=== PATIENT | female | born 1935 | race Caucasian/White ===

== ENCOUNTER → 2018-03-15 15:32 | Outpatient (CLI) | payer OTHER, SELFPAY ==
--- NOTE | 2018-03-15 15:35 | CT_ITS ---
STUDY: CT ABDOMEN AND PELVIS WITH CONTRAST REASON FOR EXAM: Female, 82 years old. Left lower quadrant pain. Left groin pain x2 weeks RADIATION DOSAGE (If Supplied By Facility): CTDIvol = ( 9.08 ) mGy, DLP = ( 342.11 ) mGycm TECHNIQUE: Transaxial images were obtained from the dome of the diaphragm to the symphysis pubis with oral contrast. 100 ml of Isovue 300 contrast was administered. Sagittal and coronal images were reconstructed. Individualized dose optimization techniques were used for this CT. COMPARISON: None. FINDINGS: The visualized lung bases are unremarkable. The visualized portions of the heart are within normal limits. Normal liver. Normal gallbladder and extrahepatic biliary system. Normal spleen. Normal pancreas. Normal bilateral adrenal glands. Exophytic cortex renal mass with enhancement measuring 1.2 x 1.1 cm. Otherwise, normal right kidney. Normal left kidney. There is a small hiatal hernia. Normal small intestine. There are multiple colonic diverticula consistent with diverticulosis. There is non-visualization of the appendix. There is diffuse atherosclerotic calcification of the abdominal aorta, without a demonstrated aneurysm. Normal inferior vena cava. Normal retroperitoneum. Normal urinary bladder. There is atrophy of the uterus. No evidence of bowel containing inguinal hernia. There are diffuse degenerative changes of the visualized lumbar spine. CT/Abdomen/Pelvis WITH Contrast IMPRESSION: 1. No evidence of acute findings. No evidence of diverticulitis or bowel containing inguinal hernia 2. Chronic diverticulosis without acute diverticulitis 3. Enhancing exophytic right renal mass as above. Further evaluation with ultrasound is warranted Electronically Signed: Felix Saldivar DO at 18:10 EDT Tel , Service support ,
[2018-03-15 17:36] LABS: CREATININE FINGERSTICK 0.8 mg/dL (0.55-1.02); EGFR FINGERSTICK > 60.0000 mL/min (>60)
== END ==
PROVIDERS: Family Provider Internal Medicine; PCP Internal Medicine; Visit Provider Surgery
DX: R10.9 Unspecified abdominal pain (principal); Z85.038 Personal history of other malignant neoplasm of large intestine
CPT/HCPCS: 74177; Q9967

== ENCOUNTER 2018-03-16 07:27 | Day surgery (SDC) | payer OTHER, SELFPAY ==
[2018-03-16] VITALS (7 sets, daily range): BP systolic 109–158; BP diastolic 50–63; PULSE 61–69; RESP 14–16; TEMP 36.1–36.8; O2SAT 97–100; BMI 19.8
--- NOTE | 2018-03-16 08:26 | EKG12_ITS ---
Test Reason : PRE OP Blood Pressure : / mmHG Vent. Rate : 063 BPM Atrial Rate : 063 BPM P-R Int : 192 ms QRS Dur : 088 ms QT Int : 426 ms P-R-T Axes : 063 049 062 degrees QTc Int : 435 ms Normal sinus rhythm Normal ECG When compared with ECG of 08-AUG-2013 10:45, No significant change was found Confirmed by LETA BISHOP, MOISE ([id number]), photography editor JENNIFER MERCEDES ([id number]) on 03/19/2018 10:03:16 AM Referred By: Byron Corea Confirmed By:MOISE GILLETTE MD
[2018-03-16 08:40] LABS: Hematocrit 35.8 % (37-47); Hemoglobin 11.7 g/dl (12.0-15.0); Mean Corp Hgb Conc 32.7 g/gl (32-36); Mean Corpuscular Hgb 29.4 pg (27.0-32.0); Mean Corpuscular Volume 89.9 fL (81-99); Platelet Count 265 K/mm3 (150-450); RBC Distribution Width CV 13.3 % (11.6-14.6); Red Blood Count 3.98 M/mm3 (4.2-5.4); White Blood Count 5.3 K/mm3 (4.4-11.0)
[2018-03-16 08:41] LABS: Scan Indicated on CBC? Y/N NO
[2018-03-16 08:51] LABS: Anion Gap 6 (5-15); BUN 17 mg/dL (7-18); BUN/Creat Ratio 24.1 RATIO (10-20); Calcium,Total 9.5 mg/dL (8.5-10.1); Chloride 107 mmol/L (98-107); Creatinine, Serum 0.71 mg/dL (0.55-1.02); EST Glomerular Filtration Rate 85 mL/min (>60); Est Glom Filt Rate - Afr Amer 102 mL/min (>60); Estimated Creatinine Clearance 32.23 ml/min; Glucose 93 mg/dL (74-106); Sodium Level 140 mmol/L (136-145)
[2018-03-16] MEDS: Bupivacaine Mpf 0.5% 30 ML VIAL (09:37)
--- NOTE | 2018-03-16 09:44 | PCM.DC.GS ---
Discharge Diet: Light diet - advance as tolerated - if you have questions about your diet instructions, please talk to you doctor. Discharge Activity: May Not Drive - for 1 week or while taking narcotic pain medicine. May shower in (days): 1 Lifting Restrictions: 10 pounds Call your doctor if your incision/area has: Continuous Slow Oozing, Sudden Increased Bleeding, Increased Pain/ Swelling, Increased Redness, Foul Smelling Discharge Call your doctor if you observe: Fever of 101 or Higher Suture Line Care: Avoid Pulling/Pushing, Avoid Pinching/Bending Additional Dressing/Incision Instructions:: Change or remove dressing in 4 days. Leave steri-strips in place for 1 week. Allergies/Adverse Reactions: Allergies sulfamethoxazole [From Bactrim] Allergy (Verified 03/15/18 15:19) Rash trimethoprim [From Bactrim] Allergy (Verified 03/15/18 15:19) Rash Penicillins Adverse Reaction (Verified 03/15/18 15:19) Unknown Medications to take at Discharge Aspirin E.C. [Ecotrin] 81 mg PO DAILY@0800 08/08/13 acetaminophen 325 mg tablet 325 mg PO Q6H PRN 03/15/18 lisinopril 10 mg tablet 10 mg PO QDAY 03/15/18 Primary Care Physician: Aida Gaitan MD [Primary Care Provider] - Please Follow Up With: Byron Corea MD - [phone] When: Call to make an appointment to be seen in about 10 days.
--- NOTE | 2018-03-16 10:00 | HERN_PTH ---
PATIENT: TOM BONDS LOC: [facility] – [place] U#:[id number] AGE/SX: 82/F ROOM: RE03/16/[address]: Dr. Byron Corea MD : [id number] BED: DIS: 03/16/2018 SPEC #: [id number] RECD: 03/16/18 11:22 STATUS: STACY CLAUDIA #: [id number] EDIE: 03/16/18 10:[address]: Byron Corea DEPT: SURGICAL PATHOLOGY RECD BY: Bereket Michael ENTERED: 03/16/18 11:38 SP TYPE: Hernia OTHR DR: Dr. Aida Gaitan MD Tissues: HERNIA Procedures: Surgery Specimen Level II HEADER OPERATION: Open incarcerated femoral herniorrhaphy PRE-OP DIAGNOSIS: Incarcerated left femoral hernia TISSUE SUBMITTED: Left femoral hernia sac and contents MICROSCOPIC DIAGNOSIS Left inguinal hernia sac and content: Fragments of fibroadipose and fibroconnective tissue, consistent with hernia sac with focal reactive changes. RACHEL:teresa 03/17/18 MICROSCOPIC DESCRIPTION Slides are reviewed. GROSS DESCRIPTION Received in fixative is one container labeled with the patient's name and designated left inguinal hernia sac and contents. The specimen consists of multiple pieces of yellow adipose tissue measuring in aggregate 5 x 4 x 1.8 cm. No mass lesion is identified. Sections reveal yellow adipose cut surfaces. Cafeteria Assistant sections are submitted in 1 cassette. RACHEL:teresa 03/15/18 TC:5 CPT: 88255
--- NOTE | 2018-03-16 10:31 | PCM.OPRPT ---
Problem List (1) Femoral hernia of left side with obstruction Status: Acute Report of Operation Date of Procedure: 03/16/18 Pre-Operative Diagnosis: Incarcerated left femoral hernia Post-Operative Diagnosis: Same Surgery/Procedure Performed:: Left femoral herniorrhaphy Description of Surgical Findings:: Timeout and informed consent was obtained. 82-year-old female was taken to the operating room. She was placed on the table. She underwent general anesthesia. Gentamicin 900 mg given intravenously. The left groin was sterilely prepped and draped. A transverse incision was made directly over the palpable mass. Sharp dissection carried down through the subtenons tissue. Exuberant fibrofatty tissue encountered. This was dissected free to a very small defect. The sac and contents were sharply excised I then actually finding the residual defect was extraordinarily difficult. The femoral artery femoral vein identified. It was felt to be medial to the defect. This was secured with interrupted 2-0 Ethibond. 3 separate sutures were placed. Palpation failed to reveal any evidence of residual defect. Femoral artery and vein appear to be intact. Doppler confirmed compressible flow in the vein. The wound was closed in layers with deep layer of interrupted 4-0 Monocryl and then a running septic or 4-0 Monocryl. Steri-Strips Telfa and OpSite dressings applied. Sponge and instrument and needle counts were reported to the surgeon to be correct. Blood loss was minimal. Specimens include the hernia sac and contents. Drains none. Blood loss minimal. The patient will have future office follow-up and to reconsider future colonoscopy but adequate healing time will be permitted Byron Corea M.D., F.A.C.S.
[2018-03-16] MEDS: Acetaminophen 325 MG Tablet PO (11:54)
== END 2018-03-16 14:04 | disposition home or self-care (01) ==
LOC: SDC 07:29 → AC 07:29
PROVIDERS: Family Provider Internal Medicine; PCP Internal Medicine; Visit Provider Surgery
PROC: (CPT 49553; principal; 2018-03-16 09:45)
DX: K41.30 Unilateral femoral hernia, with obstruction, without gangrene, not specified as recurrent (principal); K44.9 Diaphragmatic hernia without obstruction or gangrene; M81.0 Age-related osteoporosis without current pathological fracture; M19.90 Unspecified osteoarthritis, unspecified site; I10 Essential (primary) hypertension; Z78.0 Asymptomatic menopausal state; Z85.038 Personal history of other malignant neoplasm of large intestine; Z86.010 Personal history of colon polyps; Z86.2 Personal history of diseases of the blood and blood-forming organs and certain disorders involving the immune mechanism; Z79.82 Long term (current) use of aspirin; Z79.899 Other long term (current) drug therapy
CPT/HCPCS: 49553; 36415; 80048; 85027; 88302; 93005; J7120; J2405

== ENCOUNTER 2021-03-27 16:20 | Emergency (ER) | payer OTHER, SELFPAY ==
[2021-03-27] VITALS (10 sets, daily range): BP systolic 144–216; BP diastolic 61–94; PULSE 62–72; RESP 12–22; TEMP 36.8; O2SAT 90–100; BMI 19.8; BMI 42.3
--- NOTE | 2021-03-27 16:46 | ED.VIS.FALL ---
HPI HPI - Fall History of Present Illness Chief Complaint: Fall Informant: patient Occured/Mechanism Occurred: Today Mechanism/Context: Yes same level fall and Yes trip Narrative: Tripped over a cord, falling to floor Pain/Injury Location: Right shoulder Current Severity: Moderate Maximum Severity: Severe Worsened by: Any movement Relieved by: Remaining still Associated Symptoms Associated Symptoms: Positive for Loss of function; Negative for Parasthesias and Weakness Narrative Narrative: Patient had outpatient x-rays diagnosed with an anterior shoulder dislocation, they were not able to get it in with putting weights on her right upper extremity, and she was referred here. She denies any other injury. Hgnwn-lwex-spvyoest. She takes a baby aspirin but no anticoagulants or other antiplatelet medications. [facility] Medical History (Updated 03/27/21 @ 20:[address] Roosevelt Chapa MD) Anal stenosis Colon polyp Fibrosclerosis of breast Generalized osteoarthritis Hiatal hernia Hx of malignant neoplasm of colon Hypertension incarcerated left femoral hernia Osteoporosis Vitamin D deficiency Home Medications aspirin 81 mg PO DAILY@0800 08/08/13 [History Last Taken Unknown] acetaminophen 325 mg tablet 325 mg PO Q6H PRN 03/15/18 [History Last Taken Unknown] lisinopril 10 mg tablet 10 mg PO QDAY 03/15/18 [History Last Taken Unknown] hydrocodone-acetaminophen 1 tab PO Q6H PRN PRN 3 Days #12 tablet 03/27/21 [Rx Last Taken Unknown] Allergy/AdvReac Type Severity Reaction Status Date / Time sulfamethoxazole Allergy Rash Verified 03/27/21 16:22 [From Bactrim] trimethoprim [From Bactrim] Allergy Rash Verified 03/27/21 16:22 Penicillins AdvReac Unknown Verified 03/27/21 16:22 Family History Father Colon cancer Mother Diabetes Heart disease High cholesterol Hypertension Surgical History history left femoral herniorrhaphy Hx of colectomy Social History Smoking Status: Never smoker second hand exposure: No alcohol intake: never substance use type: does not use caffeine: Yes what type of physical activity do you participate in: none frequency: does not exercise seatbelt use: always ROS ROS ED Constitutional Constitutional ED: Denies chills or fever(s) Eyes Eyes: Denies change in vision or diplopia ENT ENT ED: Denies rhinorrhea or sore throat Cardiovascular Cardiovascular: Denies chest pain or palpitations Respiratory/Chest Respiratory/Chest: Denies cough or dyspnea Gastrointestinal Gastrointestinal: Denies abdominal pain, diarrhea, nausea or vomiting Genitourinary Genitourinary ED: Denies dysuria or hematuria Musculoskeletal Musculoskeletal: Reports as per HPI and extremity pain; Denies back pain or neck pain Integumentary Denies abscess or rash Neurologic Neurologic: Denies headache(s), paresthesias or weakness Psychiatric Psychiatric: Denies anxiety or suicidal thoughts EXAM Physical Exam Const Vital Signs: 03/27/21 16:21 03/27/21 17:06 03/27/21 17:09 Temperature 98.3 F Temperature Source Temporal Pulse Rate 72 67 63 Pulse Rate [1 (Initial Baseline)] Pulse Rate [2] Pulse Rate [3] Pulse Rate [4] Pulse Rate [5] Respiratory Rate 16 21 H 18 Respiratory Rate [1 (Initial Baseline)] Respiratory Rate [2] Respiratory Rate [3] Respiratory Rate [4] Respiratory Rate [5] Respiratory Effort Normal Non-Labored Respiratory Depth Normal Respiratory Pattern Normal Blood Pressure 185/85 H 216/76 H 201/78 H Blood Pressure [1 (Initial Baseline)] Blood Pressure [2] Blood Pressure [3] Blood Pressure [5] Blood Pressure Mean 118 122 119 Pulse Ox 96 98 98 Oxygen Delivery Method Room Air Room Air Room Air Oxygen Delivery Method [1 (Initial Baseline)] Oxygen Delivery Method [2] Oxygen Delivery Method [3] Oxygen Delivery Method [4] Oxygen Delivery Method [5] Oxygen Flow Rate (L/min) Oxygen Flow Rate (L/min) [1 (Initial Baseline)] Oxygen Flow Rate (L/min) [2] Oxygen Flow Rate (L/min) [3] Oxygen Flow Rate (L/min) [4] Oxygen Flow Rate (L/min) [5] 03/27/21 17:13 03/27/21 17:47 03/27/21 18:05 Temperature Temperature Source Pulse Rate 64 65 Pulse Rate [1 (Initial Baseline)] 64 Pulse Rate [2] 70 Pulse Rate [3] 66 Pulse Rate [4] 62 Pulse Rate [5] 63 Respiratory Rate 22 H 16 Respiratory Rate [1 (Initial Baseline)] 20 H Respiratory Rate [2] 18 Respiratory Rate [3] 12 Respiratory Rate [4] 14 Respiratory Rate [5] 16 Respiratory Effort Respiratory Depth Respiratory Pattern Blood Pressure 209/75 H 172/76 H Blood Pressure [1 (Initial Baseline)] 208/84 H Blood Pressure [2] 174/72 H Blood Pressure [3] 144/64 H Blood Pressure [5] 151/71 H Blood Pressure Mean Pulse Ox 98 98 Oxygen Delivery Method Room Air Nasal Cannula Oxygen Delivery Method [1 (Initial Baseline)] Nasal Cannula Oxygen Delivery Method [2] Nasal Cannula Oxygen Delivery Method [3] Nasal Cannula Oxygen Delivery Method [4] Nasal Cannula Oxygen Delivery Method [5] Nasal Cannula Oxygen Flow Rate (L/min) 2 Oxygen Flow Rate (L/min) [1 (Initial Baseline)] 2 Oxygen Flow Rate (L/min) [2] 4 Oxygen Flow Rate (L/min) [3] 8 Oxygen Flow Rate (L/min) [4] 4 Oxygen Flow Rate (L/min) [5] 2 03/27/21 18:10 03/27/21 18:15 03/27/21 19:22 Temperature Temperature Source Pulse Rate 63 64 Pulse Rate [1 (Initial Baseline)] Pulse Rate [2] Pulse Rate [3] Pulse Rate [4] Pulse Rate [5] Respiratory Rate 16 16 14 Respiratory Rate [1 (Initial Baseline)] Respiratory Rate [2] Respiratory Rate [3] Respiratory Rate [4] Respiratory Rate [5] Respiratory Effort Respiratory Depth Respiratory Pattern Blood Pressure 160/94 H 158/72 H Blood Pressure [1 (Initial Baseline)] Blood Pressure [2] Blood Pressure [3] Blood Pressure [5] Blood Pressure Mean Pulse Ox 99 98 Oxygen Delivery Method Room Air Oxygen Delivery Method [1 (Initial Baseline)] Oxygen Delivery Method [2] Oxygen Delivery Method [3] Oxygen Delivery Method [4] Oxygen Delivery Method [5] Oxygen Flow Rate (L/min) Oxygen Flow Rate (L/min) [1 (Initial Baseline)] Oxygen Flow Rate (L/min) [2] Oxygen Flow Rate (L/min) [3] Oxygen Flow Rate (L/min) [4] Oxygen Flow Rate (L/min) [5] Positive well nourished and well developed General Appearance ED: well developed and NAD HEENT Reports moist mucous membranes normocephalic and atraumatic Eyes PERRL and EOMs intact bilaterally Neck full ROM and supple General: Negative for tenderness Resp normal respiratory effort and clear to auscultation bilaterally Cardio regular rate, regular rhythm and no murmurs GI non-tender and non-distended Auscultation: normoactive bowel sounds Palpation: soft Back/Spine no CVA tenderness General Back: other FROM Extremity Extremity Narrative: Right subacromial deformity consistent with an anterior dislocation along with diffuse proximal humeral tenderness. No acromioclavicular tenderness or other bony tenderness in the shoulder girdle. Full range of motion of the elbow and wrist without any bony tenderness in those areas. No other areas of tenderness, the other 3 extremities are atraumatic. General Extremety ED: Yes tenderness; Negative for edema or pulses abnormal General Extremity: Negative for edema or pulses abnormal Neuro oriented x3, CN's II-XII intact bilaterally and no sensory deficits noted Sensorium / Orientation: awake and alert Motor Exam: strength 5/5 throughout Skin no rashes or lesions noted and no wounds MDM MDM MDM Narrative Medical decision making narrative: I was able to view the patient's x-rays that she had at the outpatient facility. 2 views on my interpretation are consistent with an anterior dislocation, and there appears to be a Hill-Sachs lesion and possibly an avulsion fracture. After performing closed reduction under procedural sedation, post reduction films were obtained and show these more clearly. The avulsion fracture appears to involve the glenoid rim. I discussed with orthopedics Dr. Beth, he requested a CT which was performed prior to the patient is discharged with a sling and pain medication. She was feeling much better at discharge, she will follow-up as an outpatient. Radiography Diagnostic Testing: Radiology Impression Shoulder X-Ray 03/27/21 18:14 IMPRESSION: Anatomic reduction of the glenohumeral joint with avulsed fragment of bone from the inferior glenoid rim. at 1906 Reported and signed by: Kwadwo Gay MD Electronically Signed: Kwadwo Gay MD at 19:05 EDT Tel , Service support , Procedures Other Procedures Procedure(s): Procedural sedation-patient has been n.p.o. for 6 hours. She was pretreated with morphine 2 mg and Zofran 4 mg IV, and pretreated with gentle IV fluids and oxygen, monitoring throughout the procedure. At least 30 minutes after these medications were given, the patient was given 80 mg of propofol, this resulted in excellent sedation. She had some shallow breathing and some transient hypoxemia down to 77%, this was only for about 10 seconds, turning up the oxygen flow in her nasal cannula resulted in recovery over 90%, along with a jaw thrust. The patient was never apneic. She otherwise recovered uneventfully. Closed reduction right anterior shoulder dislocation-with gentle Milch maneuver, I was able to maneuver the humeral head back into the glenoid, with a clunk and good resolution of the space in the subacromial area. Confirmed with postreduction x-rays. Neurovascularly intact distally after placement. Discharge Plan Triage Chief Complaint: Fall ED Provider: Roosevelt Chapa Dx/Rx/DC Orders Clinical Impression: Dislocation of shoulder, anterior, right, closed, Fracture of glenoid process of right scapula Instructions: ED Dislocation: Shoulder (Reduced), ED Sling and Swathe Prescriptions: New hydrocodone-acetaminophen [hydrocodone-acetaminophen] 1 TABLET tablet 1 tab PO Q6H PRN PRN (Reason: Pain) 3 Days Qty: 12 RF: 0 No Action lisinopril 10 mg tablet 10 mg PO QDAY RF: 0 acetaminophen [Tylenol] 325 mg tablet 325 mg PO Q6H PRN (Reason: Pain) RF: 0 aspirin 81 MG tablet 81 mg PO DAILY@0800 RF: 0 Primary Care Provider: Aida Gaitan Referrals: Nathan Beth DO [STAFF PHYSICIAN] - (Call tomorrow for appointment to be seen within the next week) Aida Gaitan MD [Primary Care Provider] - Disposition Disposition: Home, Self Care
[2021-03-27] MEDS: Ondansetron 4 MG/2 ML Vial IV (17:08)
[2021-03-27] MEDS: Morphine 2 MG/ML Syringe IV (17:08)
[2021-03-27] MEDS: Propofol 200 MG/20 ML Vial IV BOLUS (17:47)
--- NOTE | 2021-03-27 17:50 | CPS ---
At bedside for conscious sedation, patient on 2lpm. Patient required nasal cannula up to 9 lpm and jaw thrust for a short time before waking. Upon completion, patient waking up and 99% on 2lpm. See nursing documentation.
--- NOTE | 2021-03-27 18:14 | RAD_ITS ---
HISTORY: postreduction -- include axillary please (OK to abduct) EXAMINATION/TECHNIQUE: XR Shoulder Min 2 Views: COMPARISON: Right shoulder series earlier same day FINDINGS: 3 views show anatomic reduction of the glenohumeral joint with large Hill-Sachs deformity. Avulsed fragment of bone from the inferior glenoid rim projects inferior to the glenoid fossa. RAD/Shoulder min 2 Views IMPRESSION: Anatomic reduction of the glenohumeral joint with avulsed fragment of bone from the inferior glenoid rim. at 1906 Reported and signed by: Kwadwo Gay MD Electronically Signed: Kwadwo Gay MD at 19:05 EDT Tel , Service support ,
--- NOTE | 2021-03-27 19:28 | CT_ITS ---
HISTORY: Shoulder dislocation and fracture EXAMINATION: CT Shoulder W/O Contrast Injection TECHNIQUE: Helically acquired images were obtained of the right shoulder. 2-D reformats were performed by the technologist. A radiation dose optimization technique was used for this scan. IV Contrast dosage and agent: COMPARISON: Right shoulder series earlier same date FINDINGS: SOFT TISSUES: Small shoulder effusion. No radiopaque foreign body. BONES/JOINTS: Glenohumeral joints anatomically aligned. Partial Sachs deformity of the humeral head. Avulsed fragment of the inferior glenoid fossa displaced caudally. Minimally displaced fracture of the anterior margin of the glenoid fossa. CT/Extremity Upper without Contra IMPRESSION: Acute fractures of the anterior and inferior margins of the glenoid labrum. Anatomic alignment of the glenohumeral joint with Hill-Sachs deformity indicating chronic dislocations. Individualized dose optimization techniques were used for this CT. at 2025 Reported and signed by: Kwadwo Gay MD Electronically Signed: Kwadwo Gay MD at 20:24 EDT Tel , Service support ,
== END 2021-03-27 20:49 | disposition home or self-care (01) ==
PROVIDERS: Emergency Provider Emergency Medicine; PCP Internal Medicine
DX: S43.014A Anterior dislocation of right humerus, initial encounter (principal); S42.141A Displaced fracture of glenoid cavity of scapula, right shoulder, initial encounter for closed fracture; S42.291A Other displaced fracture of upper end of right humerus, initial encounter for closed fracture; W01.0XXA Fall on same level from slipping, tripping and stumbling without subsequent striking against object, initial encounter; Y93.9 Activity, unspecified; Y92.9 Unspecified place or not applicable; I10 Essential (primary) hypertension; M15.9 Polyosteoarthritis, unspecified; M81.0 Age-related osteoporosis without current pathological fracture; Z86.010 Personal history of colon polyps; Z79.82 Long term (current) use of aspirin; Z79.899 Other long term (current) drug therapy
CPT/HCPCS: 23650; 73030; 73200; 96374; 96375; 99152; 99251; 99284; J7030; A4216; G0463; J2405

== ENCOUNTER → 2022-10-10 | Outpatient (CLI) | payer OTHER, SELFPAY ==
[2022-10-10 09:30] LABS: Absolute Neutrophil Count 4.2 X10^3/uL (2.0-7.7); Basophil# 0.04 X10^3/uL; Basophil% 0.5 % (0-1); Eosinophil# 0.06 X10^3/uL; Eosinophils% 0.8 % (0-5); Hematocrit 39.9 % (37-47); Hemoglobin 12.7 g/dL (12.0-15.0); Lymphocyte % 31.4 % (19-41); Mean Corp Hgb Conc 31.8 g/dL (32-36); Mean Corpuscular Hgb 29.7 pg (27.0-32.0); Mean Corpuscular Volume 93.2 fL (81-99); Mean Platelet Vol. 9.2 fl (6.2-12.0); Monocyte# 0.66 X10^3/uL; NRBC Flagged by Analyzer 0 % (0-5); Neutrophil # 4.24 X10^3/uL (2.7-7.7); Platelet Count 340 K/mm3 (150-450); RBC Distribution Width CV 13.3 % (11.6-14.6); RBC Distribution Width SD 45.1 fl (35.1-43.9); Red Blood Count 4.28 M/mm3 (4.2-5.4); White Blood Count 7.3 K/mm3 (4.4-11.0)
[2022-10-10 09:57] LABS: ALB/GLOB Ratio 0.9 RATIO (0.9-2.4); AST(SGOT) 15 U/L (15-37); Alanine Aminotransfer ALT/SGPT 28 U/L (13-56); Albumin, Serum 3.7 g/dL (3.2-5.0); Alkaline Phosphatase 60 U/L (45-117); Anion Gap 7 (5-15); BUN 18 mg/dL (7-18); BUN/Creat Ratio 22.1 RATIO (10-20); Calcium,Total 10.1 mg/dL (8.5-10.1); Chloride 103 mmol/L (98-107); Creatinine, Serum 0.82 mg/dL (0.55-1.02); EST Glomerular Filtration Rate 71 mL/min (>60); Est Glom Filt Rate - Afr Amer 86 mL/min (>60); Globulin 4.1 g/dL (2.2-4.2); Glucose 105 mg/dL (74-106); Potassium 4.1 mmol/L (3.5-5.1); Protein, Total 7.8 g/dL (6.4-8.2); Sodium Level 138 mmol/L (136-145)
[2022-10-10 10:04] LABS: Vitamin D,25 Hydroxy 33.6 ng/mL
[2022-10-11 08:51] LABS: Carcinoembryonic Antigen 1.5 ng/mL (0.0-4.7)
== END | disposition home or self-care (01) ==
LOC: LAB 08:35
PROVIDERS: PCP Internal Medicine; Referring Provider Clinical Nurse Specialist; Visit Provider Clinical Nurse Specialist
DX: Z85.038 Personal history of other malignant neoplasm of large intestine (principal); I10 Essential (primary) hypertension; E55.9 Vitamin D deficiency, unspecified
CPT/HCPCS: 36415; 80053; 82306; 82378; 85025

== ENCOUNTER → 2024-05-04 | Outpatient (CLI) | payer OTHER, SELFPAY ==
[2024-05-04 09:25] LABS: Hematocrit 39.7 % (37-47); Hemoglobin 12.7 g/dL (12.0-15.0); Mean Corpuscular Hgb 29.3 pg (27.0-32.0); Mean Corpuscular Volume 91.5 fL (81-99); Platelet Count 316 K/mm3 (150-450); RBC Distribution Width SD 47.4 fl (35.1-43.9); Red Blood Count 4.34 M/mm3 (4.2-5.4); White Blood Count 8.1 K/mm3 (4.4-11.0)
[2024-05-04 09:49] LABS: PTHIN 56.5 pg/mL (18.4-80.1)
[2024-05-04 09:52] LABS: ALB/GLOB Ratio 0.9 RATIO (0.9-2.4); AST(SGOT) 16 U/L (15-37); Alanine Aminotransfer ALT/SGPT 16 U/L (13-56); Albumin, Serum 3.6 g/dL (3.2-5.0); Alkaline Phosphatase 66 U/L (45-117); Anion Gap 7 (5-15); BUN 18 mg/dL (7-18); BUN/Creat Ratio 22.2 RATIO (10-20); Calcium,Total 10.4 mg/dL (8.5-10.1); Chloride 107 mmol/L (98-107); Creatinine, Serum 0.81 mg/dL (0.55-1.02); EST Glomerular Filtration Rate 71 mL/min (>60); Est Glom Filt Rate - Afr Amer 86 mL/min (>60); Globulin 4.1 g/dL (2.2-4.2); Glucose 105 mg/dL (74-106); Potassium 4.2 mmol/L (3.5-5.1); Protein, Total 7.7 g/dL (6.4-8.2); Sodium Level 140 mmol/L (136-145)
[2024-05-04 09:53] LABS: Vitamin D,25 Hydroxy 40.6 ng/mL
== END | disposition home or self-care (01) ==
PROVIDERS: PCP Internal Medicine; Referring Provider Internal Medicine; Visit Provider Internal Medicine
DX: E55.9 Vitamin D deficiency, unspecified (principal); I10 Essential (primary) hypertension; Z79.899 Other long term (current) drug therapy
CPT/HCPCS: 36415; 80053; 82306; 83970; 85027